=== PATIENT | male | born 1950 | race Caucasian/White ===

== ENCOUNTER 2022-05-10 09:18 | Emergency (ER) | payer BC | END 2022-05-10 10:31 | disposition home or self-care (01) | LOC: JP.ED 09:18 → EDBD 09:18 → JP.ED 10:31 | DX: S20.361A Insect bite (nonvenomous) of right front wall of thorax, initial encounter (principal); Z88.7 Allergy status to serum and vaccine; Z87.891 Personal history of nicotine dependence; W57.XXXA Bitten or stung by nonvenomous insect and other nonvenomous arthropods, initial encounter | CPT/HCPCS: 99281; 99282 ==